=== PATIENT | female | born 1975 | race African-American/Black ===

== ENCOUNTER 2017-10-01 23:16 | Emergency (ER) | payer OTHER ==
[2017-10-02] MEDS ORDERED: Ketorolac Tromethamine 30 MG/ML VIAL ONE (03:41)
--- NOTE | 2017-10-02 07:38 | RAD ---
LEFT KNEE 4 VIEWS: HISTORY: The patient stepped off curb incorrectly and twisted the knee. COMPARISON: 01/19/2003. FINDINGS: No joint effusion. Mild degenerative change of the patellofemoral compartment. Medial and lateral c ompartment joint space heights are preserved. No fracture. Or malalignment. IMPRESSION: No posttraumatic change. POS: [facility]
== END 2017-10-02 04:07 | disposition home or self-care (01) ==
LOC: ERS 23:16
DX: M25.562 Pain in left knee (principal); I10 Essential (primary) hypertension; F31.9 Bipolar disorder, unspecified; F20.9 Schizophrenia, unspecified; Z79.899 Other long term (current) drug therapy
CPT/HCPCS: 96372; J1885

== ENCOUNTER 2017-10-26 12:11 | Emergency (ER) | payer OTHER ==
[2017-10-26] MEDS ORDERED: Furosemide 40 MG TAB ONE (14:13)
[2017-10-26] MEDS ORDERED: cloNIDine 0.1 MG TAB ONE (14:13)
[2017-10-26 15:15] LABS: #Eosinphils 0.3 thou/uL (0.0-0.7); #Lymphocytes 2.9 thou/uL (1.20-3.40); #Monocytes 0.4 thou/uL (0.11-0.59); #Neutrophils 3.9 thou/uL (1.40-6.50); %Basophils 0.6 % (0.0-1.0); %Eosinophils 4.5 % (0.0-10.0); %Monocytes 5.5 % (0.0-10.0); %Neutrophils 51.3 % (42.0-75.0); Hemoglobin 10.8 g/dL (12.0-16.0); Mean Corpuscular HGB CONC 32.5 g/dL (32.0-36.0); Mean Corpuscular Hemoglobin 27.9 pg (27.0-31.0); Mean Corpuscular Volume 85.7 fl (81.0-99.0); Mean Platelet Volume 7.4 fL (7.4-10.4); Platelet Count 285 thou/uL (130-400); RBC Distribution Width 13.7 % (11.5-14.5); Red Blood Cell (RBC) Count 3.88 mill/uL (4.20-5.40); White Blood Cell (WBC) Count 7.6 thou/uL (4.8-10.8)
[2017-10-26 15:37] LABS: ALT (SGPT) 7 U/L (8-55); AST (SGOT) 11 U/L (5-34); Albumin 4.2 g/dL (3.5-5.0); Alkaline Phosphatase 67 U/L (40-150); Anion Gap 10 mmol/L (10-20); BUN (Urea Nitrogen) 10 mg/dL (7.0-18.7); Bilirubin, Total 0.6 mg/dL (0.2-1.2); Calc. Creatinine Clearance 0 mL/min (70-130); Calcium 9.2 mg/dL (7.8-10.44); Carbon Dioxide 27 mmol/L (22-29); Chloride 104 mmol/L (98-107); Estimated GFR-MDRD 68; Globulin 3.6 g/dL (2.4-3.5); Glucose 114 mg/dL (70-105); Potassium 3.6 mmol/L (3.5-5.1); Protein, Total 7.8 g/dL (6.0-8.3); Sodium 137 mmol/L (136-145)
== END 2017-10-26 16:07 | disposition home or self-care (01) ==
LOC: ERS 12:11
DX: B35.3 Tinea pedis (principal); R60.0 Localized edema; Z91.14 Patient's other noncompliance with medication regimen; I10 Essential (primary) hypertension; E66.9 Obesity, unspecified; F31.9 Bipolar disorder, unspecified; F20.9 Schizophrenia, unspecified; Z79.899 Other long term (current) drug therapy
CPT/HCPCS: 36415; 80053; 85025; 99283

== ENCOUNTER 2018-04-03 01:31 | Emergency (ER) | payer OTHER ==
[2018-04-03] MEDS ORDERED: Bacitracin Zinc 1 Packet ONE (03:22)
[2018-04-03] MEDS ORDERED: Ketorolac Tromethamine 30 MG/ML VIAL ONE (03:23)
--- NOTE | 2018-04-03 08:49 | RAD ---
LEFT KNEE 4 VIEWS: HISTORY: Injury, left knee pain. FINDINGS: Comparison is made with the exam of 10/02/17. Mild degenerative changes are again seen. No acute fr acture or dislocation is seen. The study was interpreted in consultation with Dr. Destin Sarabia who concurs. POS: [facility]
--- NOTE | 2018-04-03 08:52 | RAD ---
LEFT ANKLE 3 VIEWS: HISTORY: Injury, left ankle pain. FINDINGS: The ankle mortise is maintained. A nondisplaced fracture of the lateral malleolus is noted. Soft ti ssue swelling is present. The ankle mortise is maintained. A nondisplaced fracture of the lateral m alleolus is present. CODE T POS: [facility]
== END 2018-04-03 03:45 | disposition home or self-care (01) ==
LOC: ERS 01:31
DX: S82.65XA Nondisplaced fracture of lateral malleolus of left fibula, initial encounter for closed fracture (principal); I10 Essential (primary) hypertension; E66.9 Obesity, unspecified; F31.9 Bipolar disorder, unspecified; F20.9 Schizophrenia, unspecified; Z79.899 Other long term (current) drug therapy; V03.99XA Pedestrian with other conveyance injured in collision with car, pick-up truck or van, unspecified whether traffic or nontraffic accident, initial encounter
CPT/HCPCS: 96372; J1885

== ENCOUNTER 2018-09-06 23:25 | Emergency (ER) | payer OTHER | END 2018-09-07 00:05 | disposition home or self-care (01) | LOC: ERS 23:25 | DX: Z46.89 Encounter for fitting and adjustment of other specified devices (principal); E66.9 Obesity, unspecified; F31.9 Bipolar disorder, unspecified; I10 Essential (primary) hypertension; Z79.899 Other long term (current) drug therapy | CPT/HCPCS: 99283 ==

== ENCOUNTER 2019-03-12 04:08 | Emergency (ER) | payer OTHER ==
[2019-03-12] MEDS ORDERED: Lidocaine Viscous Sol 2% 15 ml UD Cup ONE (04:31)
[2019-03-12] MEDS ORDERED: Mag-Al 1200 mg/1200 mg/30 ML UDCUP ONE (04:31)
[2019-03-12] MEDS ORDERED: Ondansetron ODT 4 MG TAB ONE (04:46)
[2019-03-12 04:51] LABS: #Basophils 0.1 thou/uL (0.0-0.2); #Eosinphils 0.2 thou/uL (0.0-0.7); #Lymphocytes 3.7 thou/uL (1.20-3.40); #Monocytes 0.5 thou/uL (0.11-0.59); #Neutrophils 4.3 thou/uL (1.40-6.50); %Basophils 0.9 % (0.0-1.0); %Eosinophils 2.5 % (0.0-10.0); %Lymphocytes 42.3 % (21.0-51.0); %Monocytes 5.9 % (0.0-10.0); %Neutrophils 48.5 % (42.0-75.0); Hemoglobin 10.8 g/dL (12.0-16.0); Mean Corpuscular HGB CONC 31.3 g/dL (32.0-36.0); Mean Corpuscular Hemoglobin 26.5 pg (27.0-31.0); Mean Corpuscular Volume 84.8 fL (78.0-98.0); Mean Platelet Volume 7.8 fL (7.4-10.4); Platelet Count 248 thou/uL (130-400); RBC Distribution Width 14.2 % (11.5-14.5); Red Blood Cell (RBC) Count 4.06 mill/uL (4.20-5.40); White Blood Cell (WBC) Count 8.9 thou/uL (4.8-10.8)
[2019-03-12 05:04] LABS: BHCG - Serum Negative (NEGATIVE); Pregs Control Background? CLEAR/WHITE (CLR/WHITE); Pregs Control Bar Appear? YES (CONTROL BAR)
[2019-03-12 05:26] LABS: ALT (SGPT) Less than 7 U/L (8-55); AST (SGOT) 10 U/L (5-34); Alkaline Phosphatase 79 U/L (40-150); Anion Gap 13 mmol/L (10-20); BUN (Urea Nitrogen) 15 mg/dL (7.0-18.7); Bilirubin, Total 0.3 mg/dL (0.2-1.2); Calc. Creatinine Clearance 0 mL/min (70-130); Carbon Dioxide 23 mmol/L (22-29); Chloride 107 mmol/L (98-107); Estimated GFR-MDRD 68; Globulin 3.5 g/dL (2.4-3.5); Glucose 110 mg/dL (70-105); Lipase 41 U/L (8-78); Potassium 3.6 mmol/L (3.5-5.1); Protein, Total 7.5 g/dL (6.0-8.3); Sodium 139 mmol/L (136-145)
[2019-03-12] MEDS ORDERED: Ondansetron PF 4 MG/2 ML Vial ONE (06:11)
[2019-03-12] MEDS ORDERED: Morphine 2 MG/ML SYRINGE ONE (06:11)
[2019-03-12] MEDS ORDERED: Promethazine HCl 25 MG/ML VIAL ONE (07:00)
--- NOTE | 2019-03-12 08:06 | ULT ---
GALLBLADDER ULTRASOUND: HISTORY: Right upper quadrant abdominal pain FINDINGS: The liver demonstrates homogeneous echotexture without focal mass or intrahepatic biliary ductal dila tation. Multiple shadowing gallstones are seen without gallbladder wall thickening or pericholecystic fluid a re seen. The right kidney and pancreas are normal. The common duct [id number] in diameter. No free fluid is seen in the Gill's pouch. IMPRESSION: Cholelithiasis
--- NOTE | 2019-03-12 08:45 | CT ---
ABDOMEN AND PELVIS CT WITH CONTRAST: COMPARISON: No prior comparison imaging. INDICATION: Nausea and vomiting. Abdominal pain. FINDINGS: There is no consolidation at the lung base, where visualized. Moderate distention of the gallbladder . Bowel is incompletely evaluated without enteric contrast, although there is a suggestion of wall t hickening of the colon spanning the mid ascending colon through the transverse colon and throughout t he left hemicolon, difficult to further characterize on the basis of this exam. The abdominal aorta is normal in caliber. No hydronephrosis or evidence of peripancreatic inflammation. Spleen and live r are grossly unremarkable. No adrenal mass. No free air or abdominopelvic ascites is seen. Skeleta l structures are intact. IMPRESSION: 1. Findings which favor a diffuse colitis, although it cannot be reliably assessed due to incomplete assessment from absence from enteric contrast and inadequate distention of the colon. Recommend cli nical correlation to exclude evidence of colitis which could relate to an infectious or inflammatory process. There is no underlying vascular disease, and the above-described pattern is not typical for an ischemic colitis. Correlate clinically in this regard. 2. Moderate distention of the gallbladder. As necessary, this may be further assessed with gallblad escobar ultrasound. POS: [facility]
[2019-03-12] MEDS ORDERED: Morphine 4 MG/ML VIAL ONE (08:49)
[2019-03-12] MEDS ORDERED: ISOVUE-370 76%-LOCM 1 ML ONE (09:02)
== END 2019-03-12 09:42 | disposition home or self-care (01) ==
LOC: ERS 04:08
DX: K80.80 Other cholelithiasis without obstruction (principal); I10 Essential (primary) hypertension; E66.9 Obesity, unspecified; F31.9 Bipolar disorder, unspecified; F20.9 Schizophrenia, unspecified; Z79.899 Other long term (current) drug therapy
CPT/HCPCS: 36415; 74177; 76705; 80053; 83690; 84484; 84703; 85025; 93005; 96365; 96375; 96376; J2270; J2405; J2550; Q0162; Q9966

== ENCOUNTER 2019-04-01 09:07 | Day surgery (SDC) | payer OTHER ==
[2019-03-29 14:53] VITALS: BMI 55.5
[2019-04-01] MEDS ORDERED: PROPOFOL 200 MG/20 ML VIAL ONE (11:38)
[2019-04-01] MEDS ORDERED: Lidocaine 1% PF 5 ML VIAL ONE (11:38)
--- NOTE | 2019-04-01 18:18 | OP ---
DATE OF PROCEDURE: 04/01/2019 PREPROCEDURE DIAGNOSES: 1. Abnormal CAT scan with questionable thickening of the colon on recent CAT scan in emergency room on 03/13. 2. Gallstones with symptomatic cholelithiasis in the emergency room. 3. Anemia of unclear etiology. 4. Remote history of acute hepatitis B in 2012 of normal liver function test. POSTPROCEDURE DIAGNOSES: 1. Normal esophagogastroduodenoscopy. 2. Normal colonoscopy. RECOMMENDATIONS: 1. Asked to see Dr. Bruce mukherjee, her general surgeon, whom she has seen in the past regarding talking about weight loss for cholecystectomy for symptomatic cholelithiasis. We have called his office to make an appointment there and informed him that I have asked her to go back and see him. 2. The patient's chronic constipation is much better on Linzess daily. ANESTHESIA: TIVA. PROCEDURE IN DETAIL: After the patient was informed of risks, benefits, and possible complications of endoscopy including perforation, reaction to medication, and aspiration, informed consent was obtained. The patient was brought to endoscopy suite, where she was sedated in a gradual fashion. Once she was comfortable, a bite block was placed inside the orifice. The endoscope was advanced through the esophagus, stomach, and the second and third portions of the duodenum and slowly removed. There was good visualization of the mucosa. There was no evidence of ulcers or lesions. There was a small 2 cm sliding-type hiatal hernia with no evidence of erosions or paraesophageal component. There were no David ulcers or erosions. Retroflexed views were normal. The scope was removed. The patient was returned to the room, where rectal exam was performed, which was normal. The endoscope was advanced into the anal canal through the colon to the cecum, which was identified by the ileocecal valve and appendiceal orifice. The terminal ileum was normal. The colon showed no evidence of colitis or inflammation. There were no polyps or masses. Retroflexed views were normal. The scope was removed. The patient tolerated the procedure well. There were no complications. Job ID: [id number]
== END 2019-04-01 12:05 | disposition home or self-care (01) ==
LOC: SDC 09:07
PROVIDERS: ATTEND Internal Medicine Gastroenterology
PROC: 0DJD8ZZ Inspection of Lower Intestinal Tract, Via Natural or Artificial Opening Endoscopic (ICD-10-PCS; principal; 2019-04-01)
PROC: 0DJ08ZZ Inspection of Upper Intestinal Tract, Via Natural or Artificial Opening Endoscopic (ICD-10-PCS; principal; 2019-04-01)
DX: K80.20 Calculus of gallbladder without cholecystitis without obstruction (principal); R93.5 Abnormal findings on diagnostic imaging of other abdominal regions, including retroperitoneum; K59.00 Constipation, unspecified; K44.9 Diaphragmatic hernia without obstruction or gangrene; D64.9 Anemia, unspecified; F32.9 Major depressive disorder, single episode, unspecified; F41.9 Anxiety disorder, unspecified; I10 Essential (primary) hypertension; M19.90 Unspecified osteoarthritis, unspecified site; Z90.710 Acquired absence of both cervix and uterus; Z86.19 Personal history of other infectious and parasitic diseases; Z79.899 Other long term (current) drug therapy
CPT/HCPCS: J2001; J2704

== ENCOUNTER 2021-02-01 21:41 | Emergency (ER) | payer OTHER ==
[2021-02-01] MEDS ORDERED: HYDROcodone/Acetaminophen 10/325 mg Tablet ONE (22:59)
== END 2021-02-02 00:15 | disposition home or self-care (01) ==
LOC: ERS 21:41
DX: S83.92XA Sprain of unspecified site of left knee, initial encounter (principal); I10 Essential (primary) hypertension; E66.9 Obesity, unspecified; Z79.899 Other long term (current) drug therapy; X50.1XXA Overexertion from prolonged static or awkward postures, initial encounter; Y93.01 Activity, walking, marching and hiking

== ENCOUNTER 2023-05-24 00:57 | Emergency (ER) | payer SELFPAY ==
[2023-05-24] MEDS ORDERED: Aspirin Chewable 81 MG TAB ONE (01:17)
[2023-05-24 03:00] LABS: #Eosinphils 0.2 thou/uL (0.0-0.7); #Monocytes 0.7 thou/uL (0.11-0.59); %Basophils 0.3 % (0.0-1.0); %Eosinophils 1.6 % (0.0-10.0); %Lymphocytes 41.4 % (21.0-51.0); %Monocytes 7.2 % (0.0-10.0); %Neutrophils 49.2 % (42.0-75.0); Hematocrit 32.9 % (36.0-47.0); Hemoglobin 10.7 g/dL (12.0-16.0); Mean Corpuscular HGB CONC 32.5 g/dL (32.0-36.0); Mean Corpuscular Hemoglobin 26.4 pg (27.0-31.0); Mean Platelet Volume 10.5 fL (7.4-10.4); Platelet Count 272 10x3/uL (130-400); Red Blood Cell (RBC) Count 4.06 mill/uL (4.20-5.40); White Blood Cell (WBC) Count 10.2 10x3/uL (4.8-10.8)
[2023-05-24 03:23] LABS: ALT (SGPT) 8 U/L (8-55); AST (SGOT) 15 U/L (5-34); Albumin 4.3 g/dL (3.5-5.0); Alkaline Phosphatase 81 U/L (40-110); Anion Gap 14 mmol/L (10-20); BUN (Urea Nitrogen) 21 mg/dL (7.0-18.7); Bilirubin, Total 0.7 mg/dL (0.2-1.2); Calc. Creatinine Clearance 0 mL/min (70-130); Calcium 9.5 mg/dL (7.8-10.44); Carbon Dioxide 25 mmol/L (22-29); Chloride 102 mmol/L (98-107); Estimated GFR 36; Globulin 4.2 g/dL (2.4-3.5); Glucose 101 mg/dL (70-105); Lipase 26 U/L (8-78); Potassium 3.6 mmol/L (3.5-5.1); Protein, Total 8.5 g/dL (6.0-8.3); Sodium 137 mmol/L (136-145)
== END 2023-05-24 04:10 | disposition home or self-care (01) ==
LOC: ERS 00:57
DX: R07.9 Chest pain, unspecified (principal); I10 Essential (primary) hypertension; E11.9 Type 2 diabetes mellitus without complications; E66.9 Obesity, unspecified; Z79.84 Long term (current) use of oral hypoglycemic drugs; Z79.899 Other long term (current) drug therapy
CPT/HCPCS: 71045; 80053; 83690; 83880; 84484; 85025; 93005; 94760

== ENCOUNTER 2023-08-30 02:06 | Emergency (ER) | payer BC, OTHER, SELFPAY ==
[2023-08-30] MEDS ORDERED: Ketorolac Tromethamine 30 MG/ML VIAL ONE (02:59)
[2023-08-30 03:31] LABS: Bacteria/HPF None Seen HPF (None Seen); Bilirubin Negative (Negative); Blood, Urine 1+ (Negative); CAUTI Indications for Culture Pelvic or flank pain; Clarity Clear (Clear); Glucose, Urine (Dipstick) Normal (Negative); Ketone, Urine Negative (Negative); Leukocyte 25 Leu/uL (Negative); Mucous/LPF Rare LPF (<2+); Nitrite Negative (Negative); Protein, Urine (Dipstick) 20 mg/dL (Neg-Trace); RBC/HPF 0-3 HPF (0-3); Specific Gravity, Urine 1.031 (1.002-1.036); Squamous Epithelial 0-3 HPF (0-3); pH, Urine 5.5 (5.0-9.0)
[2023-08-30 03:33] LABS: Urine Culture Reflex No No
[2023-08-30 03:54] LABS: #Eosinphils 0.1 thou/uL (0.0-0.7); #Monocytes 0.7 thou/uL (0.11-0.59); #Neutrophils 4.7 thou/uL (1.40-6.50); %Basophils 0.3 % (0.0-1.0); %Eosinophils 1.3 % (0.0-10.0); %Lymphocytes 39.7 % (21.0-51.0); %Monocytes 7.4 % (0.0-10.0); %Neutrophils 50.9 % (42.0-75.0); Hematocrit 34.2 % (36.0-47.0); Hemoglobin 10.8 g/dL (12.0-16.0); Mean Corpuscular HGB CONC 31.6 g/dL (32.0-36.0); Mean Corpuscular Hemoglobin 28.1 pg (27.0-31.0); Mean Corpuscular Volume 89.1 fl (78.0-98.0); Platelet Count 290 10x3/uL (130-400); RBC Distribution Width 16.1 % (11.5-14.5); Red Blood Cell (RBC) Count 3.84 mill/uL (4.20-5.40); White Blood Cell (WBC) Count 9.3 10x3/uL (4.8-10.8)
[2023-08-30 04:06] LABS: BHCG - Serum Negative (NEGATIVE); Pregs Control Background? CLEAR/WHITE (CLR/WHITE); Pregs Control Bar Appear? YES (CONTROL BAR)
[2023-08-30 04:18] LABS: ALT (SGPT) 8 U/L (8-55); AST (SGOT) 12 U/L (5-34); Albumin 4.7 g/dL (3.5-5.0); Alkaline Phosphatase 70 U/L (40-110); Anion Gap 16 mmol/L (10-20); BUN (Urea Nitrogen) 21 mg/dL (7.0-18.7); Bilirubin, Total 0.5 mg/dL (0.2-1.2); Calc. Creatinine Clearance 0 mL/min (70-130); Calcium 9.6 mg/dL (7.8-10.44); Carbon Dioxide 22 mmol/L (22-29); Chloride 105 mmol/L (98-107); Estimated GFR 44; Globulin 3.3 g/dL (2.4-3.5); Glucose 92 mg/dL (70-105); Potassium 3.8 mmol/L (3.5-5.1); Sodium 139 mmol/L (136-145)
[2023-08-30] MEDS ORDERED: Cephalexin 250 MG CAP ONE (05:07)
[2023-08-30 16:13] LABS: Chlamydia by PCR, EndoCx Swab Not Detected (NotDetected); GC by PCR, EndoCx Swab Not Detected (NotDetected)
== END 2023-08-30 05:10 | disposition home or self-care (01) ==
LOC: ERS 02:06
DX: N39.0 Urinary tract infection, site not specified (principal); I10 Essential (primary) hypertension; Z79.899 Other long term (current) drug therapy
CPT/HCPCS: 36415; 76856; 80053; 81001; 84703; 85025; 87480; 87491; 87510; 87591; 87660; 96372; J1885

== ENCOUNTER 2023-09-25 22:34 | Emergency (ER) | payer OTHER | END 2023-09-25 23:28 | disposition home or self-care (01) | LOC: ERS 22:34 | DX: R05.9 Cough, unspecified (principal); I10 Essential (primary) hypertension; Z79.899 Other long term (current) drug therapy | CPT/HCPCS: 71045 ==

== ENCOUNTER 2023-11-06 23:43 | Emergency (ER) | payer OTHER ==
[2023-11-07] MEDS ORDERED: Ibuprofen 200 MG TAB ONE (00:30)
[2023-11-07] MEDS ORDERED: HYDROcodone/Acetaminophen 5/325 mg Tablet ONE (00:31)
== END 2023-11-07 01:19 | disposition home or self-care (01) ==
LOC: ERS 23:43
DX: S92.421A Displaced fracture of distal phalanx of right great toe, initial encounter for closed fracture (principal); E11.9 Type 2 diabetes mellitus without complications; I10 Essential (primary) hypertension; J44.9 Chronic obstructive pulmonary disease, unspecified; E66.9 Obesity, unspecified; W22.8XXA Striking against or struck by other objects, initial encounter

== ENCOUNTER 2025-05-30 09:14 | Outpatient (CLI) | payer OTHER | END 2025-05-30 09:15 | disposition home or self-care (01) | LOC: BICRAD 09:14 | PROVIDERS: ATTEND Internal Medicine | DX: Z02.71 Encounter for disability determination (principal); M43.16 Spondylolisthesis, lumbar region; M47.816 Spondylosis without myelopathy or radiculopathy, lumbar region; M19.072 Primary osteoarthritis, left ankle and foot; M76.892 Other specified enthesopathies of left lower limb, excluding foot; M21.42 Flat foot [pes planus] (acquired), left foot; M76.62 Achilles tendinitis, left leg | CPT/HCPCS: 72100 ==